=== PATIENT | female | born 1940 | race Caucasian/White ===

== ENCOUNTER 2020-01-24 10:54 | Emergency (ER) | payer BC, MEDICARE ==
[2020-01-24 11:33] VITALS: BP 138/84
--- NOTE | 2020-01-24 12:16 | UC ---
Lower Extremity/Ankle HPI - HPI Summary HPI Summary: C/O right 1st MTP pain, redness and warmth x 1 1/2 weeks. Some improvement with medrol dose pack but now worsening again. No fevers/ sweats or chills - History of Current Complaint Chief Complaint: UCLowerExtremity Stated Complaint: RT FOOT COMPLAINT Time Seen by Provider: 01/24/20 12:01 Hx Obtained From: Patient Onset/Duration: Gradual Onset, Lasting Weeks - 1 1/2, Worse Since - last 2 days Severity Initially: Mild Severity Currently: Severe Pain Intensity: 8 Aggravating Factor(s): Standing, Ambulation Alleviating Factor(s): Rest, Elevation Able to Bear Weight: Yes - Risk Factors Gout Risk Factors: Diabetes, Hypertension, Hyperlipidemia, Obesity - Allergies/Home Medications Allergies/Adverse Reactions: Allergies Allergy/AdvReac Type Severity Reaction Status Date / Time nabumetone [From Relafen] Allergy See Comment Verified 01/24/20 11:27 naproxen [From Aleve] Allergy See Comment Verified 01/24/20 11:27 Home Medications: Home Medications Allopurinol TAB* [Zyloprim 100 MG TAB*] 100 mg PO DAILY 01/24/20 [History Confirmed 01/24/20] Apixaban* [Eliquis*] 2.5 mg PO BID 01/24/20 [History Confirmed 01/24/20] Colchicine* [Colcrys*] 0.6 mg PO BID #60 tab 01/24/20 [Rx] Lisinopril TAB* [Prinivil TAB 10 MG*] 5 mg PO BID 01/24/20 [History Confirmed ] Simvastatin 40 mg PO DAILY 01/24/20 [History Confirmed 01/24/20] metFORMIN* [Glucophage 500 MG TAB *] 500 mg PO BID 01/24/20 [History Confirmed 01/24/20] traMADol TAB* [Ultram*] 50 mg PO Q6HR PRN 01/24/20 [History Confirmed 01/24/20] PMH/Surg Hx/FS Hx/Imm Hx Endocrine History: Diabetes, Dyslipidemia Cardiovascular History: Hypertension Respiratory History: Pulmonary Embolism - Surgical History Surgical History: Yes Surgery Procedure, Year, and Place: appy. D&C - Family History Known Family History: Positive: Diabetes - Social History Occupation: Retired Lives: Alone Alcohol Use: None Substance Use Type: None Smoking Status (MU): Former Smoker When Did the Patient Quit Smoking/Using Tobacco: 20+ years ago Review of Systems All Other Systems Reviewed And Are Negative: Yes Musculoskeletal: Positive: Arthralgia - right 1st MTP Physical Exam Triage Information Reviewed: Yes Appearance: Well-Appearing, Pain Distress - mild Vital Signs: Initial Vital Signs Temp 97.8 F 01/24/20 11:22 Pulse 107 01/24/20 11:22 Resp 18 01/24/20 11:22 BP 138/84 01/24/20 11:22 Pulse Ox 99 01/24/20 11:22 Vital Signs Reviewed: Yes Eyes: Positive: Conjunctiva Clear Neck exam: Normal Respiratory Exam: Normal Cardiovascular Exam: Normal Musculoskeletal: Positive: ROM Limited @ - right 1st MTP, Other: - Right 1st MTP , swollen, red, tender and warm. Neurological Exam: Normal Psychological Exam: Normal Skin Exam: Normal Lower Extremity Course/Dx - Differential Dx/Diagnosis Differential Diagnosis/HQI/PQRI: Cellulitis, Gout, Sprain, Strain Provider Diagnosis: Gout involving toe of right foot Discharge ED - Sign-Out/Discharge Documenting (check all that apply): Patient Departure All imaging exams completed and their final reports reviewed: No Studies - Discharge Plan Condition: Stable Disposition: HOME Prescriptions: Colchicine* [Colcrys*] 0.6 mg PO BID #60 tab Patient Education Materials: Gout (ED) Referrals: Callie Merchant PA [Primary Care Provider] - 1 Week (recheck gout.) - Billing Disposition and Condition Condition: STABLE Disposition: Home
== END 2020-01-24 12:28 | disposition home or self-care (01) ==
LOC: UCCORT 10:54
DX: M10.9 Gout, unspecified (principal); E11.9 Type 2 diabetes mellitus without complications; E78.5 Hyperlipidemia, unspecified; Z87.891 Personal history of nicotine dependence; Z79.84 Long term (current) use of oral hypoglycemic drugs; Z79.899 Other long term (current) drug therapy; Z88.6 Allergy status to analgesic agent
CPT/HCPCS: 99212; G0463